=== PATIENT | female | born 2005 | race Caucasian/White ===

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

== ENCOUNTER 2025-03-16 19:38 | Emergency (ER) | payer MEDICAID, OTHER ==
[~2025-03-16] VITALS: Ht 154.9 cm; Wt 47.2 kg
[2025-03-16 19:38] VITALS: TEMP 98.2
[2025-03-16] MEDS ORDERED: CYCLOBENZAPRINE 10 MG TABLET ONE (20:04)
[2025-03-16] MEDS ORDERED: IBUPROFEN 600 MG TABLET ONE (20:04)
[2025-03-16] MEDS: CYCLOBENZAPRINE 10 MG TABLET PO ONE (20:09)
[2025-03-16] MEDS: IBUPROFEN 600 MG TABLET PO ONE (20:10)
[2025-03-16 21:27] VITALS: BP 125/71; O2SAT 98
== END 2025-03-16 21:27 | disposition home or self-care (01) ==
LOC: ER 19:43
DX: M53.3 Sacrococcygeal disorders, not elsewhere classified (principal); W10.9XXA Fall (on) (from) unspecified stairs and steps, initial encounter; Y93.89 Activity, other specified; Y92.89 Other specified places as the place of occurrence of the external cause; Y99.8 Other external cause status
CPT/HCPCS: 72220-TC